=== PATIENT | female | born 1975 | race Caucasian/White ===

== ENCOUNTER 2017-07-25 07:57 | Emergency (ER) | payer BC ==
[~2017-07-25] VITALS: Ht 167.6 cm; Wt 101.0 kg
[2017-07-25 08:00] VITALS: Ht 167.6 cm; Wt 101.0 kg
[2017-07-25] MEDS ORDERED: BUPR300T48 PO (09:30)
[2017-07-25] MEDS ORDERED: BUPR1FIL SL (09:31)
[2017-07-25] MEDS ORDERED: SOD CHLORIDE 0.9% 1,000 ML IV STA (09:36)
[2017-07-25] MEDS ORDERED: ONDANSETRON 4 MG INJ ONE (10:10)
[2017-07-25] MEDS ORDERED: ONDANSETRON 4 MG INJ IV STA (10:25)
[2017-07-25 10:46] LABS: BASOPHIL # 0.1 10^3/ul (0.0-0.1); BASOPHILS % 0.8 % (0.0-2.0); EOSINOPHILS # 0.1 10^3/ul (0.0-0.5); EOSINOPHILS % 1.2 % (0.0-7.0); HEMATOCRIT 46.4 % (37.0-47.0); HEMOGLOBIN 15.4 g/dl (12.0-16.0); LYMPHOCYTES # 2.4 10^3/ul (0.8-2.9); LYMPHOCYTES % 26.2 % (15.0-51.0); MEAN CORPUSCULAR HEMOGLOBIN 29.2 pg (29.0-33.0); MEAN CORPUSCULAR HGB CONC 33.2 g/dl (32.0-37.0); MEAN CORPUSCULAR VOLUME 87.9 fl (82.0-101.0); MEAN PLATELET VOLUME 10.3 fl (7.4-10.4); MONOCYTE # 0.5 10^3/ul (0.3-0.9); MONOCYTES % 5.7 % (0.0-11.0); NEUTROPHILS % 65.9 % (39.0-77.0); PLATELET COUNT 231 10^3/UL (140-415); RED BLOOD COUNT 5.28 10^6/ul (4.20-5.40); RED CELL DISTRIBUTION WIDTH 12.3 % (11.5-14.5); WHITE BLOOD COUNT 9.1 10^3/ul (4.8-10.8)
[2017-07-25] MEDS ORDERED: LIDOCAINE/MYLANTA 40 ML BTL ONE (10:47)
[2017-07-25 10:48] LABS: ADD UMIC YES; UR ASCORBIC ACID NEGATIVE (NEGATIVE); UR BILIRUBIN (Dip) NEGATIVE (NEGATIVE); UR BLOOD (Dip) 3+ mg/dL (NEGATIVE); UR CLARITY CLOUDY (CLEAR); UR COLOR YELLOW (YELLOW); UR GLUCOSE (Dip) NEGATIVE (NEGATIVE); UR KETONES (Dip) TRACE mg/dL (NEGATIVE); UR LEUKOCYTE ESTERASE (Dip) NEGATIVE Leu/ul (NEGATIVE); UR MUCUS FEW /HPF (NONE SEEN); UR NITRITE (Dip) NEGATIVE (NEGATIVE); UR RBC > 182 /HPF (0-5); UR SQUAMOUS EPITHELIAL CELL FEW /HPF (FEW); UR TOTAL PROTEIN (Dip) 1+ mg/dl (NEGATIVE); UR UROBILINOGEN (Dip) NEGATIVE (NEGATIVE)
[2017-07-25 10:57] LABS: ALBUMIN 3.9 g/dl (3.3-4.9); ALBUMIN/GLOBULIN RATIO 1.11; BILIRUBIN,INDIRECT 0.2 mg/dl (0-1.1); BILIRUBIN,TOTAL 0.2 mg/dl (0.2-1.3); CALCIUM 9.8 mg/dl (8.4-10.2); CREATININE 0.8 mg/dl (0.44-1.00); TOTAL PROTEIN 7.4 g/dl (6.1-8.1)
[2017-07-25] MEDS ORDERED: LIDOCAINE/MYLANTA 40 ML BTL PO ONE (11:00)
[2017-07-25 11:11] VITALS: BP 130/85; PULSE 71; RESP 18
[2017-07-25] MEDS ORDERED: PANTOPRAZOLE 40 MG INJ IV ONE (11:30)
[2017-07-25] MEDS ORDERED: FAMOTIDINE 20 MG INJ IV ONE (11:30)
--- NOTE | 2017-07-25 12:26 | ERA ---
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 She does not endorse a headache at this time. She has no vision changes. She has no sore throat. She does describe throat pain but she does not endorse other chest pains. She is not short of breath. She does have epigastric tenderness. She also has lower abdominal cramping, which she attributes to her menses. Her menstrual periods started approximately 2 days ago. She does not endorse any fever or chills. She does not feel sick. She has not noticed any changes to bowel movements or urination. ROS All systems reviewed and are negative except as per history of present illness. Medications Home Meds Reported Medications Buprenorphine Hcl-Naloxone Hcl (Suboxone SL) 2-0.5 Mg Film, 1 FILM SL DAILY, FILM 07/25/17 Bupropion Hcl* (Wellbutrin XL*) 300 Mg Tab.sr.24h, 300 MG PO DAILY, TAB.SA 07/25/17 Allergies Allergies: Coded Allergies: No Known Allergy (Unverified , 07/25/17) PMhx/Soc Medical and Surgical Hx: pt denies Medical Hx, pt denies Surgical Hx History of Surgery: Yes (left eye) Hx Neurological Disorder: Yes (migraine) Hx Miscellaneous Medical Probl: Yes (polyps) Hx Alcohol Use: No Hx Substance Use: No Hx Tobacco Use: No Smoking Status: Never smoker FmHx Family History: No coronary disease, No diabetes Physical Exam Vitals Vital Signs Date Time Temp Pulse Resp B/P Pulse Ox O2 Delivery O2 Flow Rate FiO2 07/25/17 11:11 71 18 130/85 100 Room Air 07/25/17 08:00 135 20 133/89 99 Physical Exam Const: NAD, Well developed, Well Nourished Head: Atraumatic Eyes: Normal Conjunctiva on right, eye prosthesis on left ENT: Normal External Ears, Nose and Mouth. Neck: Full range of motion..~ No meningismus. Resp: Clear to auscultation bilaterally Cardio: tachycardia, regular rhythm, no murmurs Abd: Obese, soft, non distended. Epigastric tenderness. Normal bowel sounds Skin: No petechiae or rashes Back: No midline or flank tenderness Ext: No cyanosis, or edema Neur: Awake and alert Psych: Normal Mood and Affect Result Diagram: 07/25/17 0950 07/25/17 0950 Results 24 hrs Laboratory Tests Test 07/25/17 09:50 07/25/17 10:30 White Blood Count 9.110^3/ul Red Blood Count 5.2810^6/ul Hemoglobin 15.4g/dl Hematocrit 46.4% Mean Corpuscular Volume 87.9fl Mean Corpuscular Hemoglobin 29.2pg Mean Corpuscular Hemoglobin Concent 33.2g/dl Red Cell Distribution Width 12.3% Platelet Count 79336^3/UL Mean Platelet Volume 10.3fl Neutrophils % 65.9% Lymphocytes % 26.2% Monocytes % 5.7% Eosinophils % 1.2% Basophils % 0.8% Nucleated Red Blood Cells % 0.0/100WBC Neutrophils # (Manual) 6.010^3/ul Lymphocytes # 2.410^3/ul Monocytes # 0.510^3/ul Eosinophils # 0.110^3/ul Basophils # 0.110^3/ul Nucleated Red Blood Cells # 0.010^3/ul Sodium Level 138mmol/L Potassium Level 4.0mmol/L Chloride Level 102mmol/L Carbon Dioxide Level 29mmol/L Anion Gap 11 Blood Urea Nitrogen 9mg/dl Creatinine 0.80mg/dl Glucose Level 87mg/dl Calcium Level 9.8mg/dl Total Bilirubin 0.2mg/dl Direct Bilirubin 0.00mg/dl Indirect Bilirubin 0.2mg/dl Aspartate Amino Transf (AST/SGOT) 27IU/L Alanine Aminotransferase (ALT/SGPT) 31IU/L Alkaline Phosphatase 54IU/L Total Protein 7.4g/dl Albumin 3.9g/dl Globulin 3.50g/dl Albumin/Globulin Ratio 1.11 Lipase 61U/L Urine Color YELLOW Urine Clarity CLOUDY Urine pH 5.0 Urine Specific [place] 1.020 Urine Ketones TRACEmg/dL Urine Nitrite NEGATIVEmg/dL Urine Bilirubin NEGATIVEmg/dL Urine Urobilinogen NEGATIVEmg/dL Urine Leukocyte Esterase NEGATIVELeu/ul Urine Microscopic RBC > 182/HPF Urine Microscopic WBC 1/HPF Urine Squamous Epithelial Cells FEW/HPF Urine Granular Casts FEW/HPF Urine Mucus FEW/HPF Urine Hemoglobin 3+mg/dL Urine Glucose NEGATIVEmg/dL Urine Total Protein 1+mg/dl Current Medications Medications (Trade) Dose Ordered Sig/Antonio Route PRN Reason Start Time Stop Time Status Last Admin Dose Admin Sodium Chloride (NS) 1,000 ml @ 1,000 mls/hr Q1H STAT IV 07/25/17 09:36 07/25/17 10:35 DC 07/25/17 09:36 Ondansetron HCl (Zofran Inj) 4 mg STK-MED ONCE .ROUTE 07/25/17 10:10 07/25/17 10:11 DC Ondansetron HCl (Zofran Inj) 4 mg ONCE STAT IV 07/25/17 10:25 07/25/17 10:28 DC 07/25/17 11:11 Miscellaneous Medication (Gi Cocktail (2)) 40 ml ONCE ONCE PO 07/25/17 11:00 07/25/17 11:01 DC 07/25/17 11:11 Miscellaneous Medication (Gi Cocktail (2)) 40 ml STK-MED ONCE .ROUTE 07/25/17 10:47 07/25/17 10:48 DC Famotidine (Pepcid Iv) 20 mg ONCE ONCE IV 07/25/17 11:30 07/25/17 11:31 DC 07/25/17 11:20 Pantoprazole (Protonix Iv) 40 mg ONCE ONCE IV 07/25/17 11:30 07/25/17 11:31 DC 07/25/17 11:22 Procedures/MDM The patient's presenting with burning epigastric pain. An abdominal workup was performed. The patient's blood work was obtained and reviewed. The patient's CBC is unremarkable. She has no leukocytosis or left shift. She is afebrile and I do not suspect a systemic infection. Patient is not anemic today. Her platelet count is normal. The patient's CMP is also unremarkable. The patient's urinalysis does show trace ketones with hematuria. The patient notes that she is actively having menses and has not noticed any blood in her urine otherwise. She does not endorse a burning sensation or pain with urination. She has no flank pain. I do not suspect a kidney stone at this time. EKG read by me: Rate/Rhythm: Regular rhythm, sinus tachycardia at 126 bpm per Intervals: Normal Klemme: Normal Impression: No evidence of acute ischemia or arrhythmia The patient was given IV fluids, Zofran, Pepcid, Protonix and a GI cocktail with near complete resolution of her symptoms. Her heart rate improved to the 70s. She is no longer nauseated and her pain was under control. Her vital signs remained stable, and I do not suspect an emergent etiology. The patient does not have symptoms consistent with a viscus perforation. There is a possibility of gastritis versus a gastric ulcer. The patient will be sent home with a prescription for Pepcid. She may continue to use Tums as needed as well. She needs to follow-up with her primary care doctor in 2-3 days for reevaluation. She will be given precautions with which to return to the emergency department. Departure Diagnosis: Primary Impression: Epigastric pain Condition: SHAMEKA Flores MD Jul 25, 2017 12:26
[2017-07-25] MEDS ORDERED: FAMO-96 PO (12:27)
== END 2017-07-25 12:34 | disposition home or self-care (01) ==
LOC: E/R 07:57
DX: R10.13 Epigastric pain (principal); E66.9 Obesity, unspecified; Z68.35 Body mass index [BMI] 35.0-35.9, adult
CPT/HCPCS: 80053; 81001; 83690; 85025; 96374; 96375; 99284; C9113; J2405; J7030

== ENCOUNTER 2019-02-28 20:32 | Emergency (ER) | payer BC ==
[~2019-02-28] VITALS: Ht 165.1 cm; Wt 102.9 kg
[~2019-02-28 20:32] MED LIST: BUPR1FIL SL; BUPR300T48 PO; FAMO-96 PO
[2019-02-28 20:53] VITALS: PULSE 129; Ht 165.1 cm; Wt 102.9 kg
[2019-03-01] MEDS ORDERED: KETOROLAC 30 MG INJ IV STA (00:18)
[2019-03-01] MEDS ORDERED: METOCLOPRAMIDE 10 MG INJ IV STA (00:18)
[2019-03-01] MEDS ORDERED: SOD CHLORIDE 0.9% 1,000 ML IV STA (00:18)
[2019-03-01] MEDS ORDERED: LORAZEPAM 2 MG INJ IV ONE (00:30)
--- NOTE | 2019-03-01 00:48 | ERD ---
ER Documentation Chief Complaint Chief Complaint HEADACHE X4 DAYS, NAUSEA, HX TRIGEMINAL NURALGIA HPI This is a 44-year-old female patient who presents with migraine headache x5 days. States she has history of atypical migraines and is followed closely by neurologist, PMD, pain specialist. She uses [place] and THC and is not having relief. States that this headache is typical for her headaches however her treatment usually resolves headaches in a couple of hours and this headache is not resolving as well as having uncontrolled nausea. Headache originates in left temporal region,+ photophobia,+ nausea, +left eye socket pain. 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 Also complaining of insomnia and bilateral tinnitus. She is seeing neurologist for tinnitus. Patient keeping exam room dark, cooperative, NAD. ROS All systems reviewed and are negative except as per history of present illness. Medications Home Meds Active Scripts Famotidine* (Pepcid*) 20 Mg Tablet, 20 MG PO BID for 14 Days, TAB Prov:SHAMEKA PINZON MD 07/25/17 Reported Medications Buprenorphine Hcl-Naloxone Hcl (Suboxone SL) 2-0.5 Mg Film, 1 FILM SL DAILY, FILM 07/25/17 Bupropion Hcl* (Wellbutrin XL*) 300 Mg Tab.sr.24h, 300 MG PO DAILY, TAB.SA 07/25/17 Allergies Allergies: Coded Allergies: No Known Allergy (Unverified , 07/25/17) PMhx/Soc Hx Neurological Disorder: Yes (migraine) Hx Miscellaneous Medical Probl: Yes (polyps) Hx Alcohol Use: No Hx Substance Use: Yes (CBD) Hx Tobacco Use: Yes (vape) Smoking Status: Current every day smoker FmHx Family History: No diabetes, No coronary disease, No other Physical Exam Vitals Vital Signs Date Temp Pulse Resp B/P (MAP) Pulse Ox O2 O2 Flow FiO2 Time Delivery Rate 03/01/19 98.9 17 154/88 98 02:33 (110) 02/28/19 99.5 129 17 154/88 97 20:53 (110) Physical Exam Const: No acute distress Head: Atraumatic Eyes: Normal Conjunctiva, PERRL (right eye), EOMI ENT: Normal External Ears, Nose and Mouth. Pharynx pink, no lesions, no exudate. Neck: Full range of motion. No meningismus. Resp: Clear to auscultation bilaterally Cardio: Regular rate and rhythm, no murmurs Abd: Soft, non tender, non distended. Normal bowel sounds Skin: No petechiae or rashes Back: No midline or flank tenderness Ext: No cyanosis, or edema Neur: Awake and alert, CNI-XII intact, clear speech, no pronator drift, no sensation loss, steady gait Psych: Normal Mood and Affect Results 24 hrs Laboratory Tests Test 03/01/19 00:37 03/01/19 00:46 POC Beta HCG, Qualitative NEGATIVE Bedside Urine pH (LAB) 6.0 Bedside Urine Protein (LAB) Trace Bedside Urine Glucose (UA) Negative Bedside Urine Ketones (LAB) Negative Bedside Urine Blood Negative Bedside Urine Nitrite (LAB) Negative Bedside Urine Leukocyte Esterase (L Negative Current Medications Medications Dose Sig/Antonio Start Time Status Last (Trade) Ordered Route PRN Stop Time Admin Dose Reason Admin Sodium 1,000 ml @ Q1H STAT 03/01/19 DC 03/01/19 Chloride 1,000 mls/hr IV 00:18 00:37 03/01/19 01:17 10 mg ONCE STAT 03/01/19 DC 03/01/19 Metoclopramid IV 00:18 00:44 e HCl 03/01/19 00:25 (Reglan) Ketorolac 30 mg ONCE STAT 03/01/19 DC 03/01/19 Tromethamine IV 00:18 00:44 (Toradol) 03/01/19 00:25 Lorazepam 1 mg ONCE ONCE 03/01/19 DC 03/01/19 (Ativan) IV 00:30 00:44 03/01/19 00:31 Procedures/MDM This is a 44 yo patient with hx of migraine headaches who presents with extended duration of migraine and unrelenting nausea. ED COURSE: The patient was stable throughout ED course. DIAGNOSTIC IMAGING: Not indicated at this time. MEDICATIONS GIVEN: NS 1L, Oxygen @ 2 L/min, Reglan 10 mg, Toradol 30 mg, Ativan 1 mg Patient tolerated medication well with no adverse reactions. Reassessment post treatment: patient has improved considerably with treatment. Patient states her nausea is eliminated and her pain has subsided considerably. No longer photophobic. Patient stating she is ready for discharge. Patient declines any prescriptions at time of discharge. MDM: The patient was well-appearing with VSS and without neurological deficits at time of reevaluation and discharge. Clinical and diagnostic exam not suggestive of infection, intracranial process, SAH, SDH, neoplasm, meningitis, encephalitis, aneurysm, thrombus, temporal arteritis, sinusitis. The patient has been provided with instructions on self-care including use of analgesia, reducing triggers, and need for close follow-up with primary care physician within 1-2 days for reevaluation. The patient has been instructed to return immediately for worsening symptoms, change in pattern of current symptoms, or other acute problems. DISPOSITION: Home to follow-up with providers. Departure Diagnosis: Primary Impression: Migraine Condition: Stable Patient Instructions: Migraines and Cluster Headaches Referrals: [facility] Additional Instructions: Thank you very much for allowing us to participate in your care. Your health and safety is our top priority at [facility]. Call your primary care doctor TOMORROW for an appointment during the next 2-4 days and bring all the information and medications prescribed. Have prescriptions filled and follow precisely the directions on the label. If the symptoms get worse and your provider is unavailable, return to the Emergency Department immediately. MINNA RUST NP Mar 01, 2019 00:48
[2019-03-01 02:33] VITALS: BP 154/88; RESP 17
== END 2019-03-01 02:34 | disposition home or self-care (01) ==
LOC: FTE 20:32
DX: G43.909 Migraine, unspecified, not intractable, without status migrainosus (principal); F17.210 Nicotine dependence, cigarettes, uncomplicated; R40.2142 Coma scale, eyes open, spontaneous, at arrival to emergency department; R40.2362 Coma scale, best motor response, obeys commands, at arrival to emergency department; R40.2252 Coma scale, best verbal response, oriented, at arrival to emergency department
CPT/HCPCS: 81003; 81025; J1885; J2060; J2765; J7030; 96374; 96375